=== PATIENT | female | born 1985 | race Hispanic/Latino ===

== ENCOUNTER 2020-03-13 15:41 | Emergency (ER) | payer OTHER, SELFPAY ==
[2020-03-13 15:50] VITALS: BP 158/90; PULSE 86; RESP 16; TEMP 36.9; O2SAT 98; BMI 29.2
--- NOTE | 2020-03-13 15:59 | DI.RAD.S_ITS ---
PROCEDURE: XR KNEE LT 3V INDICATIONS: knee injury TECHNIQUE: 3 views of the knee were acquired. COMPARISON: None. FINDINGS: Examination is slightly limited by overlying compressive wrap. Bones: No fractures or dislocations. No suspicious bony lesions. Soft tissues: No joint effusion. No suspicious soft tissue calcifications. IMPRESSION: No acute abnormality is seen on these plain films. If there is strong clinical suspicion for internal derangement of the knee, please consider a dedicated, scheduled MRI for further evaluation (assuming that there is no contraindication to MRI). Dictated by: Timothy Rizzo M.D. on 03/13/2020 at 15:17 Approved by: Timothy Rizzo M.D. on 03/13/2020 at 15:18
[2020-03-13] MEDS: IBUPROFEN 400 MG TABLET PO (17:46)
[2020-03-13] MEDS: ACETAMINOPHEN 325 MG TABLET 650 MG PO (17:46)
[2020-03-13] MEDS: HYDROCODONE/ACET 5/325 TABLET 1 TAB PO (17:46)
[2020-03-13 17:55] VITALS: BP 145/88; PULSE 71; RESP 16; O2SAT 99
--- NOTE | 2020-03-14 00:30 | ED.LOWEXIN ---
HPI - Extremity Injury (Lower) <JOHN Joy - Last Filed: 03/14/20 00:46> General Chief Complaint: Extremity Injury, Lower Stated Complaint: Hurt Left Knee 5 Days Ago, Not Getting Better Time Seen by Provider: 03/13/20 16:26 Source: patient Mode of arrival: Ambulatory Limitations: no limitations History of Present Illness HPI Narrative: This is a 34 year female, nonsmoker, who has history of partial tear in left meniscus presents to ED with chief complain of left knee pain for last 5 days. Patient felt popped in her knee when she was working out with weights while she was squatting down Patient reports instability and pain when she bears weight. Patient reports intact sensation distally and is able to move her toes. Patient reports pain fall around the knee and worsening with flexion, extension of affected knee or palpation of the knee. She has been icing the affected knee with elevation, sleeve like knee immobilizer and using ibuprofen and Tylenol at home for pain. Related Data Home Medications Medication Instructions Recorded Confirmed ibuprofen [Motrin IB] 400 mg PO Q6H 03/13/20 03/13/20 Previous Rx's Medication Instructions Recorded hydrocodone-acetaminophen [[place]] 1 tab PO Q8H PRN #7 tab 03/13/20 Allergies Allergy/AdvReac Type Severity Reaction Status Date / Time No Known Drug Allergies Allergy Verified 03/13/20 16:07 Review of Systems <JOHN Joy - Last Filed: 03/14/20 00:46> Review of Systems Narrative: General: Denies fever, chills, fatigue, malaise, sweats. Respiratory: Denies dyspnea, cough, wheezing, hemoptysis, sputum. Cardiovascular: Denies chest pain, palpitations, orthopnea, edema. : Denies dysuria, frequency, incontinence, hematuria, urinary retention. Musculoskeletal: Feet HPI Skin: Denies rash, skin lesions, or other. Patient History <JOHN Joy - Last Filed: 03/14/20 00:46> Surgical History History of appendectomy (Acute) History of removal of ovarian cyst (Acute) Social History Smoking Status: Never smoker Smoking Status: Never smoker alcohol intake frequency: holidays/special occasions only Substance Use Type: does not use Exam <Efrain JOHN Logan - Last Filed: 03/14/20 00:46> Narrative Exam Narrative: General appearance: well developed, well nourished, in mild distress due to pain during exam. Head: normocephalic, atraumatic, no scalp lesions, non-tender. ENT: Hearing grossly intact. Nose without bleeding, purulent discharge, septal hematoma or deviation. Turbinate without erythema or swelling. Facial sinuses nontender to palpate. Mucous membrane moist, no mucosal lesion. Throat without erythema, tonsillar hypertrophy or exudate. Uvula in midline, airway patent. Neck/Thyroid: neck supple, full range of motion, no visible masses or meningeal signs. No JVD, non-tender without lymphadenopathy. Skin: no suspicious rashes, lesions over visible areas. Warm and dry and appropriate color for ethnicity. Heart: no clubbing, no cyanosis, no edema. S1 and S2 normal. RRR w/o murmurs, clicks, or bruits. Lungs: Breathing even and unlabored. No stridor. No accessory muscles used. Able to speak in full sentences. Chest: normal shape and expansion. Abdomen: non-obese, non-distended. Neurologic: alert and oriented. Cognitive exam, LACE PINNER and PNS grossly intact on informal exam. Psych: good eye contact, normal affect. Initial Vital Signs Initial Vital Signs: Vital Signs Temperature 98.5 F 03/13/20 15:50 Pulse Rate 86 03/13/20 15:50 Respiratory Rate 16 03/13/20 15:50 Blood Pressure 158/90 H 03/13/20 15:50 Pulse Oximetry 98 03/13/20 15:50 Extrem Left lower extremity: knee Details: tenderness, swelling Location: of the patella, of the pre-patellar area and of the infrapatellar area, abnormal ROM, knee ligament exam abnormal Details: valgus stress test, varus stress test and Segundo?s test, deformity and other (Intact popliteal pulse), lower leg Details: normal to inspection; no tenderness and no localized swelling, ankle Details: normal to inspection; no tenderness and no swelling and foot Details: normal to inspection, toes with normal ROM, no edema, vascular exam Details: dorsalis pedis pulse present and normal capillary refill and motor-sensory exam Details: light-touch normal; no tenderness and no unusual warmth <Carmen Whitten DO - Last Filed: 03/14/20 08:06> Initial Vital Signs Initial Vital Signs: Vital Signs Temperature 98.5 F 03/13/20 15:50 Pulse Rate 86 03/13/20 15:50 Respiratory Rate 16 03/13/20 15:50 Blood Pressure 158/90 H 03/13/20 15:50 Pulse Oximetry 98 03/13/20 15:50 Procedures <JOHN Joy - Last Filed: 03/14/20 00:46> Orthopedic Splinting/Casting Injury #1: Side: left Lower Extremity Injury Location: knee Lower Extremity Immobilizer: knee immobilizer Post splinting neuro exam: intact Post splinting vascular exam: intact Placed by: Nursing Scores <JOHN Joy - Last Filed: 03/14/20 00:46> GCS [place] coma scale eye opening: Spontaneous [place] coma scale verbal response: Orientated Jodi coma scale motor response: Obey commands Jodi coma scale total score: 15 Course <JOHN Joy - Last Filed: 03/14/20 00:46> Orders Ordered: Discontinued Medications Acetaminophen (Tylenol) 650 mg PO NOW ONE Stop: 03/13/20 17:30 Last Admin: 03/13/20 17:46 Dose: 650 mg Documented by: MYA Hydrocodone Bitart/Acetaminophen ([place] 5/325) 1 tab PO NOW ONE Stop: 03/13/20 17:30 Last Admin: 03/13/20 17:46 Dose: 1 tab Documented by: MYA Ibuprofen (Advil) 400 mg PO NOW ONE Stop: 03/13/20 17:30 Last Admin: 03/13/20 17:46 Dose: 400 mg Documented by: MYA Vital Signs Vital signs: Vital Signs - 8 hr 03/13/20 17:55 Pulse Rate 71 Respiratory Rate 16 Blood Pressure 145/88 H Pulse Oximetry 99 <Carmen Whitten DO - Last Filed: 03/14/20 08:06> Orders Ordered: Discontinued Medications Acetaminophen (Tylenol) 650 mg PO NOW ONE Stop: 03/13/20 17:30 Last Admin: 03/13/20 17:46 Dose: 650 mg Documented by: MYA Hydrocodone Bitart/Acetaminophen ([place] 5/325) 1 tab PO NOW ONE Stop: 03/13/20 17:30 Last Admin: 03/13/20 17:46 Dose: 1 tab Documented by: MYA Ibuprofen (Advil) 400 mg PO NOW ONE Stop: 03/13/20 17:30 Last Admin: 03/13/20 17:46 Dose: 400 mg Documented by: MYA Vital Signs Vital signs: Vital Signs - 8 hr 03/13/20 17:55 Pulse Rate 71 Respiratory Rate 16 Blood Pressure 145/88 H Pulse Oximetry 99 MDM - Extremity Injury (Lower) <JOHN Joy - Last Filed: 03/14/20 00:46> Differential Diagnosis Differential diagnosis: Likely acute internal derangement of knee and other (Knee sprain, knee fracture,) Imaging Data XR-Knee LT: Radiologist's Impression: [address] [address] XRay Report Signed Patient: Jose Patten TMR#: [id number] : 1985Acct:[id number] Age/Sex: 34 / FDate of Service: 03/13/20 Loc: ED Accession Number: [id number] Procedure: XR knee LT 3V Ordering Provider: Efrain Logan PROCEDURE: XR KNEE LT 3V INDICATIONS: knee injury TECHNIQUE: 3 views of the knee were acquired. COMPARISON: None. FINDINGS: Examination is slightly limited by overlying compressive wrap. Bones: No fractures or dislocations. No suspicious bony lesions. Soft tissues: No joint effusion. No suspicious soft tissue calcifications. IMPRESSION: No acute abnormality is seen on these plain films. If there is strong clinical suspicion for internal derangement of the knee, please consider a dedicated, scheduled MRI for further evaluation (assuming that there is no contraindication to MRI). Dictated by: Tmiothy Rizzo M.D. on 03/13/2020 at 15:17 Approved by: Timothy Rizzo M.D. on 03/13/2020 at 15:18 [facility] Narrative Medical decision making narrative: Patient has exquisite tenderness around the patella with light palpation and passive and active range of motion. Intact sensation distally and dorsal pedis and popliteal pulse. Patient is able to move her toes without difficulty and denies pain or swelling in lower extremities, ankle, or foot. X-ray test shows no acute abnormality findings. Given patient has history of partial meniscus tear and feeling instability when bearing weight, patient advised to follow-up with [facility] orthopedist for an evaluation and possible advanced imaging test. Affected knee has been placed in knee immobilizer and to use (patient's own) crutches for ambulation and weight bearing. Patient advised to use [id number] Tylenol and or Motrin as needed for baseline pain and discharged to home with a few tabs of [place] for severe pain along narcotic medication precautions. Return precautions were discussed with patient and patient verbalized understanding in agreement with treatment presents. Discharge Plan Departure Patient Disposition: Home Clinical Impression: Derangement of knee, left Discharge Date/Time: 03/13/20 17:58 Instructions: DI for Knee Pain Activity Restrictions/Additional Instructions: You have been diagnosed with [left knee pain likely ligament injury. X-ray test on left knee does not show acute findings such as fracture, dislocation or joint effusion. You may need advanced imaging test if pain is not getting better]. What to do: *Take your medications as directed. Please take [id number] Tylenol and or Motrin as needed for discomfort. Tylenol 650-1000 mg up to 3 to 4 times a day as needed for pain. Ibuprofen 400 mg up to 3 to 4 times a day as needed for pain with food to decrease GI irritation. Please use narcotic medication [place] for severe pain. It can cause drowsiness so please do not drive, drink alcohol, or operate heavy equipments. He can also cause constipation so please take precautions. Use knee immobilizer for discomfort and crutches that you have at home. *Follow up with your primary care provider/[facility] orthopedist in 2-3 days, call for an appointment. Let them know you were seen in the ED and that we asked you to be seen in follow up. *Return to ED if you have any new, worsening, or concerning symptoms, such as [increasing pain/swelling, numbness, weakness, chest pain, breathing difficulty, unable to tolerate fluids or any acute concerns]. Prescriptions: New hydrocodone-acetaminophen [[place]] 5-325 mg tablet 1 tab PO Q8H PRN (Reason: pain) Qty: 7 RF: 0 No Action ibuprofen [Motrin IB] 200 mg Tablet 400 mg PO Q6H RF: 0 Referrals: [facility] [Provider Group] Terra Dias MD [Primary Care Provider] - <Carmen Whitten DO - Last Filed: 03/14/20 08:06> Cosign ED Attending Girma Attestation: I was immediately available in the department for consultation. Documentation has been reviewed. I agree with assessment and plan. l
== END 2020-03-13 17:58 | disposition home or self-care (01) ==
PROVIDERS: Emergency Provider Nurse Practitioner Family; PCP Family Medicine
DX: M23.92 Unspecified internal derangement of left knee (principal)
CPT/HCPCS: 73562; 99283

== ENCOUNTER 2020-10-21 08:21 | Emergency (ER) | payer OTHER, SELFPAY ==
[2020-10-21 08:25] VITALS: BP 152/96; PULSE 82; RESP 19; TEMP 36.8; O2SAT 97; BMI 29.2
--- NOTE | 2020-10-21 08:35 | ED_ITS ---
HPI - General Adult General Chief complaint: Headache Stated complaint: LOWER BACK PAIN, REALLY BAD HEADACHE Time Seen by Provider: 10/21/20 08:23 Source: patient Mode of arrival: Ambulatory Limitations: no limitations History of Present Illness HPI narrative: Patient is a 35-year-old female is here for evaluation of lower back pain and also headache. She has had lower back pain for some time. 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 She states that she was told that this is likely not causing her issues. Over the past several weeks she has developed lower back pain. She has also developed headache which she states is associated with an increase in her lower back pain. She went to her primary doctor in order to obtain a referral to have a CT scan/MRI. She was told that the referral process was taking a long time so approximately 10 days ago she went to emergency department at an outside facility where she had a CT scan performed which was unremarkable. She was told to take [id number]-esh-[id number] anti-inflammatories. According to her discharge paperwork it does look like she was sent home with a Medrol Dosepak. She states she is here today because last evening the symptoms got especially worse. She was tearful about her symptoms in the exam room. She states that she has followed up with her primary doctor since that emergency department visit and does have a referral in to see ?a neurologist ? Related Data Home Medications Medication Instructions Recorded Confirmed ibuprofen [Motrin IB] 400 mg PO Q6H 03/13/20 03/13/20 Previous Rx's Medication Instructions Recorded hydrocodone-acetaminophen [[place]] 1 tab PO Q8H PRN #7 tab 03/13/20 Allergies Allergy/AdvReac Type Severity Reaction Status Date / Time No Known Drug Allergies Allergy Verified 03/13/20 16:07 Review of Systems Constitutional Constitutional: Denies fatigue, Denies fever(s) and Reports headache(s) Eyes Eyes: Denies change in vision ENT Ears, Nose, Mouth, and Throat: Reports dizziness, Reports headache(s), Denies disequilibrium and Denies sore throat Cardiovascular Cardiovascular: Denies chest pain and Denies dyspnea Respiratory Respiratory: Denies dyspnea Gastrointestinal Gastrointestinal: Denies abdominal pain, Denies change in bowel habits, Denies nausea and Denies vomiting Genitourinary Genitourinary: Denies dysuria, Denies urinary frequency, Denies urinary hesitancy and Denies urinary incontinence Genitourinary: Denies urinary frequency, Denies dysuria, Denies urinary incontinence and Denies urinary hesitancy Musculoskeletal Musculoskeletal: Reports back pain Integumentary/Breasts Skin/Breast: Denies lesions and Denies rash Neurologic Neurologic: Denies abnormal speech, Denies burning sensations, Denies confusion, Reports dizziness, Reports headache(s), Denies localized weakness, Denies radicular pain, Denies sensory deficit and Denies disequilibrium Psychiatric Psychiatric: Denies confusion Endocrine Endocrine: Denies fatigue Hematologic/Lymphatic On Anticoagulants: No Allergic/Immunologic Allergic/Immunologic: Denies urticaria Patient History Medical History Concussion Surgical History History of appendectomy History of removal of ovarian cyst Social History Smoking Status: Never smoker Smoking Status: Never smoker alcohol intake frequency: holidays/special occasions only Substance Use Type: does not use Exam Initial Vital Signs Initial Vital Signs: Vital Signs Temperature 98.2 F 10/21/20 08:25 Pulse Rate 82 10/21/20 08:25 Respiratory Rate 19 10/21/20 08:25 Blood Pressure 152/96 H 10/21/20 08:25 Pulse Oximetry 97 10/21/20 08:25 Const General: cooperative, healthy appearing, comfortable, well developed and well groomed Limitations: mental status not altered HENMT Head: normal to inspection and normocephalic Ears: hearing grossly normal bilaterally Nose: external nose normal Face and sinus: normal facial exam Mouth: oral mucosae normal Eyes Pupils: PERRL EOM: EOM intact bilaterally Resp Effort & Inspection: normal respiratory effort Auscultation: clear to auscultation bilaterally Cardio Rate: regular rate Rhythm: regular rhythm GI Inspection: non-distended Palpation: soft Skin Lesions: no lesions Rashes: no rashes Neuro General: patient alert, patient awake and patient oriented x3 Cognition: normal cognition Speech: speech normal Gait: normal gait Motor: muscle tone normal throughout Other: Her cranial nerves are intact except for a subjective decrease in sensation to light touch on the right side of her face compared to the left. Extrem General: normal to inspection and capillary refill normal Psych Appearance: grossly normal and well kempt Scores GCS Jodi coma scale eye opening: Spontaneous [place] coma scale verbal response: Orientated [place] coma scale motor response: Obey commands Jodi coma scale total score: 15 Course Orders Ordered: ED Orders 10/21/20 08:35 CT head/brain wo con Stat 10/21/20 09:24 MR head/brain wo/w con Stat Discontinued Medications Diphenhydramine HCl (Diphenhydramine 50 Mg/Ml Vial) 25 mg IV NOW ONE Stop: 10/21/20 08:36 Last Admin: 10/21/20 08:47 Dose: 25 mg Documented by: LORE Metoclopramide HCl (Metoclopramide 10 Mg/2 Ml Inj) 10 mg IV NOW ONE Stop: 10/21/20 08:36 Last Admin: 10/21/20 08:47 Dose: 10 mg Documented by: LORE Vital Signs Vital signs: Vital Signs - 8 hr 10/21/20 08:25 10/21/20 11:30 Temperature 98.2 F Pulse Rate 82 69 Respiratory Rate 19 Blood Pressure 152/96 H 134/91 H Pulse Oximetry 97 97 Medical Decision Making Imaging Data CT scan - head: Radiologist's Impression: [address] [id number] Scan ReportSigned Patient: Jose Patten TMR#: [id number]: 1985Acct:[id number]/Sex: 35 / FDate of Service: 10/21/20Loc: EDAccession Number: [id number] Procedure: CT head/brain wo con Ordering Provider: Artis Aguilera D.O. PROCEDURE: CT HEAD/BRAIN WO CON INDICATIONS: headache and subjective right sided facial numbness TECHNIQUE: Noncontrast 4.5 mm thick angled axial sections acquired from the foramen magnum to the vertex, with coronal and sagittal reformats. For radiation dose reduction, the following was used: automated exposure control, adjustment of mA and/or kV according to patient size. COMPARISON: None. FINDINGS: Image quality: Excellent. CSF spaces: Basal cisterns are patent. No extra-axial fluid collections. Ventricles are normal in size and shape. Brain: There is subtle hypodensity in the left temporal lobe. No midline shift. No intracranial masses or hemorrhage. Skull and face: Calvarium and visualized facial bones are intact, without suspicious lesions. Sinuses: Visualized sinuses and mastoids are clear. IMPRESSION: Subtle hyperdensity in the left temporal lobe. If clinical symptoms persist or clinical suspicion for pathology is high, MRI is suggested for further evaluation. Dictated by: Deni Glez M.D. on 10/21/2020 at 8:01 Approved by: Deni Glez M.D. on 10/21/2020 at 8:15 brain MRI: Radiologist's Impression: [address] [id number] Resonance ReportSigned Patient: Jose Patten TMR#: [id number]: 1985Acct:[id number]/Sex: 35 / FDate of Service: 10/21/20Loc: EDAccession Number: [id number] Procedure: MR head/brain wo/w con Ordering Provider: Artis Aguilera D.O. PROCEDURE: MR HEAD/BRAIN WO/W CON INDICATIONS: L temp lobe finding on CT scan TECHNIQUE: Noncontrast axial T1 spin echo, axial T2 fast spin echo, sagittal and axial FLAIR, coronal T2 fast spin echo, axial gradient echo, axial diffusion and ADC through the brain. After the administration of contrast, axial and coronal 3D VIBE or T1 spin echo with fat saturation through the brain. COMPARISON: [facility], CT, CT HEAD/BRAIN WO CON, 10/21/2020, 8:48. FINDINGS: Image quality: Excellent. CSF Spaces: Basal cisterns are patent. No extra-axial fluid collections. Ventricles are normal in size and shape. Brain: No midline shift. No intracranial bleeds or masses. No abnormal intracranial enhancement. The brainstem appears normal. Diffusion-weighted images demonstrate no acute ischemic insults. No chronic ischemic insults. Normal intravascular flow voids are present. Previously identified low-attenuation focus within the left temporal lobe is felt to be artifactual. There is no abnormal signal or enhancement. Skull and face: Calvarial marrow is normal in signal. Orbits appear normal. Sinuses: Sinuses and mastoids appear clear. IMPRESSION: 1. No acute intracranial process. 2. No abnormal signal or enhancement within the area of asymmetric hypoattenuation on CT. It is felt to be likely artifactual. Dictated by: Dominique Deras M.D. on 10/21/2020 at 11:03 Approved by: Dominique Deras M.D. on 10/21/2020 at 11:21 [facility] Narrative Medical decision making narrative: Patient has no objective findings on her neurologic exam. She did report a decrease in sensation to the right side of her face compared to the left. CT scan and MRI of her brain are unremarkable. She does report improvement of her symptoms after the medications here. She has seen Ophthalmology recently as well. She is in the process of having a referral approved for her to go see Neurology which I believe is an appropriate next step for her. She was given return precautions and follow-up instructions. She expressed understanding and agreement. Discharge Plan Departure Patient Disposition: Home Clinical Impression: Headache Instructions: DI for Headache Activity Restrictions/Additional Instructions: Your workup here in the emergency department is very reassuring. I do agree with having you follow-up with Neurology. Contact your primary provider for follow-up. Return to the emergency department for any new or worsening symptoms Prescriptions: No Action ibuprofen [Motrin IB] 200 mg Tablet 400 mg PO Q6H RF: 0 hydrocodone-acetaminophen [[place]] 5-325 mg tablet 1 tab PO Q8H PRN (Reason: pain) Qty: 7 RF: 0 Referrals: Mirian Yadav ARNP [Primary Care Provider] -
[2020-10-21] MEDS: diphenhydrAMINE 50 MG/ML VIAL 25 MG IV (08:47)
[2020-10-21] MEDS: METOCLOPRAMIDE 10 MG/2 ML INJ IV (08:47)
--- NOTE | 2020-10-21 09:24 | DI.MRI.S_ITS ---
PROCEDURE: MR HEAD/BRAIN WO/W CON INDICATIONS: L temp lobe finding on CT scan TECHNIQUE: Noncontrast axial T1 spin echo, axial T2 fast spin echo, sagittal and axial FLAIR, coronal T2 fast spin echo, axial gradient echo, axial diffusion and ADC through the brain. After the administration of contrast, axial and coronal 3D VIBE or T1 spin echo with fat saturation through the brain. COMPARISON: [facility], CT, CT HEAD/BRAIN WO CON, 10/21/2020, 8:48. FINDINGS: Image quality: Excellent. CSF Spaces: Basal cisterns are patent. No extra-axial fluid collections. Ventricles are normal in size and shape. Brain: No midline shift. No intracranial bleeds or masses. No abnormal intracranial enhancement. The brainstem appears normal. Diffusion-weighted images demonstrate no acute ischemic insults. No chronic ischemic insults. Normal intravascular flow voids are present. Previously identified low-attenuation focus within the left temporal lobe is felt to be artifactual. There is no abnormal signal or enhancement. Skull and face: Calvarial marrow is normal in signal. Orbits appear normal. Sinuses: Sinuses and mastoids appear clear. IMPRESSION: 1. No acute intracranial process. 2. No abnormal signal or enhancement within the area of asymmetric hypoattenuation on CT. It is felt to be likely artifactual. Dictated by: Dominique Deras M.D. on 10/21/2020 at 11:03 Approved by: Dominique Deras M.D. on 10/21/2020 at 11:21
[2020-10-21 11:30] VITALS: BP 134/91; PULSE 69; O2SAT 97
== END 2020-10-21 11:41 | disposition home or self-care (01) ==
PROVIDERS: Emergency Provider Emergency Medicine; PCP Nurse Practitioner Family
DX: R51.9 Headache, unspecified (principal)
CPT/HCPCS: 70450; 70553; 96374; 96375; 99284; J1200; J2765

== ENCOUNTER → 2020-10-27 07:05 | Outpatient (CLI) | payer OTHER, SELFPAY ==
--- NOTE | 2020-10-27 | DI.MRI.S_ITS ---
PROCEDURE: MR PELIS WO/W CON INDICATIONS: PERINEURAL CYST TECHNIQUE: Noncontrast axial and coronal T1 spin echo and STIR through the lumbosacral plexus region. Optional contrast may be given, followed by axial and coronal T1 spin echo with fat saturation through the sacral plexus. COMPARISON: None. FINDINGS: Image quality: Excellent. Lumbosacral plexus: There is a 1.1 x 1.3 cm perineural cyst associated with the right S3 nerve root prior to its entry to the neural foramen. Postcontrast, there is no peripheral or internal enhancement. The central canal and neural foramina maintain normal morphology without osseous remodeling. The other sacral nerve roots appear normal in their course and caliber. Soft tissues: The musculature is symmetric, normal in size and signal.. No presacral masses. Uterus and right ovary appear normal. The left ovary was not well seen. Rectum appears normal in caliber and wall thickness. No pathologic free pelvic fluid. No visualized adenopathy by size criteria. Bones: Marrow is normal in overall signal. IMPRESSION: 1. 1.3 cm right S3 perineural cyst without adjacent mass effect. Dictated by: Freida Glover M.D. on 10/27/2020 at 8:20 Approved by: Freida Glover M.D. on 10/27/2020 at 8:35
== END ==
PROVIDERS: PCP Nurse Practitioner Family; Referring Provider Nurse Practitioner Family; Visit Provider Nurse Practitioner Family
DX: G96.191 Perineural cyst (principal); M53.3 Sacrococcygeal disorders, not elsewhere classified
CPT/HCPCS: 72197

== ENCOUNTER → 2020-11-14 08:39 | Outpatient (CLI) | payer OTHER, SELFPAY ==
--- NOTE | 2020-11-14 | DI.MRI.S_ITS ---
PROCEDURE: MR KNEE RT WO CON INDICATIONS: Sprain of other specified parts of right knee, initial encou TECHNIQUE: Noncontrast sagittal PD fast spin echo and T2 fast spin echo with fat saturation, sagittal 3-D FLASH with fat saturation; coronal T1 spin echo and PD fast spin echo with fat saturation, and axial PD fast spin echo with fat saturation through the knee. COMPARISON: None. FINDINGS: Image quality: Excellent. Menisci: There is a small peripheral horizontal oblique tear in the body of the lateral meniscus extending to the outer third of the tibial articular surface. The lateral meniscus is intact. Cruciate ligaments: The anterior and posterior cruciate ligaments appear intact. Medial structures: The medial collateral ligament appears intact. The semimembranosus tendon insertions and meniscocapsular junction appear intact. Visualized portions of the pes anserinus tendons appear normal. No abnormal bursal fluid. Lateral structures: The lateral collateral ligament, long and short heads of the biceps femoris tendon appear intact. The popliteus tendon appears intact. No signs of posterolateral corner injury. Iliotibial band appears normal. Anterior structures: There is mild patellar tendinosis. The distal quadriceps tendon is intact. No femoral trochlear dysplasia or ventral trochlear prominence. No edema in the infrapatellar fat pad. Bones and cartilage: No bone marrow contusions or fractures. Focal high-grade and possibly full-thickness cartilage loss is seen in the central to posterior weight-bearing portion of the medial femoral condyle measuring approximately 10 x 7 mm. The cartilages in the lateral and anterior compartments are intact. Joint space and soft tissues: There is a physiologic amount of joint fluid. A trace medial popliteal cyst is present. Mild superficial varicose veins are seen at the lateral aspect of the knee. IMPRESSION: 1. Small horizontal oblique tear in the body of the lateral meniscus extending to the outer third of the tibial articular surface. 2. Intact cruciate and collateral ligaments. No acute trabecular bone injury. 3. Focal grade 3-4 cartilage defect in the central posterior weight-bearing portion of the medial femoral condyle measuring 10 x 7 mm. 4. Mild patellar tendinosis. Dictated by: Checo Hernandez M.D. on 11/15/2020 at 10:06 Approved by: Checo Hernandez M.D. on 11/15/2020 at 10:26
== END ==
PROVIDERS: PCP Nurse Practitioner Family; Referring Provider Counselor Mental Health; Visit Provider Counselor Mental Health
DX: S83.8X1A Sprain of other specified parts of right knee, initial encounter (principal); S83.281A Other tear of lateral meniscus, current injury, right knee, initial encounter
CPT/HCPCS: 73721

== ENCOUNTER → 2021-04-07 06:43 | Outpatient (CLI) | payer OTHER, SELFPAY ==
--- NOTE | 2021-04-07 | DI.MRI.S_ITS ---
PROCEDURE: MR HEAD/BRAIN WO/W CON INDICATIONS: Anesthesia of skin TECHNIQUE: Noncontrast axial T1 spin echo, axial T2 fast spin echo, sagittal and axial FLAIR, coronal T2 fast spin echo, axial gradient echo, axial diffusion and ADC through the brain. After the administration of contrast, axial and coronal 3D VIBE or T1 spin echo with fat saturation through the brain. COMPARISON: [facility], MR, MR HEAD/BRAIN WO/W CON, 10/21/2020, 10:27. FINDINGS: Image quality: Excellent. CSF Spaces: Basal cisterns are patent. No extra-axial fluid collections. Ventricles are normal in size and shape. Brain: No midline shift. No intracranial bleeds or masses. No abnormal intracranial enhancement. The brainstem appears normal. Diffusion-weighted images demonstrate no acute ischemic insults. No chronic ischemic insults. Normal intravascular flow voids are present. Skull and face: Calvarial marrow is normal in signal. Orbits appear normal. Sinuses: Sinuses and mastoids appear clear. IMPRESSION: No evidence of acute ischemia. No acute intracranial signal abnormality or enhancement. Dictated by: Kike Samson M.D. on 04/07/2021 at 9:15 Approved by: Kike Samson M.D. on 04/07/2021 at 9:19
--- NOTE | 2021-04-07 | DI.MRI.S_ITS ---
PROCEDURE: MR CERVICAL SPINE WO CON INDICATIONS: Anesthesia of skin TECHNIQUE: Noncontrast sagittal T1 spin echo and T2 fast spin echo, sagittal STIR, foraminal oblique sagittal T2 fast spin echo, and axial gradient echo or T2 fast spin echo through the cervical spine. COMPARISON: None. FINDINGS: Image quality: Excellent. Alignment and Curvature: There is normal bony alignment. Bone Marrow: Marrow demonstrates normal overall signal. Spinal Cord: Visualized spinal cord has normal size and signal. No cerebellar tonsillar herniation. Paraspinous Soft Tissues: No paravertebral masses. Prevertebral soft tissues are normal in thickness. C2-C3: No canal stenosis or foraminal stenosis. C3-C4: Mild disc bulge. AP diameter of the canal is 10 mm. Right uncovertebral joint hypertrophy and mild right facet hypertrophy results in mild to moderate right foraminal narrowing and mild flattening deformity on the exiting right C4 nerve root. C4-C5: Mild disc bulge with very minimal central posterior disc protrusion resulting in mild canal stenosis. AP diameter of the canal is 9.2 mm. Mild bilateral uncovertebral joint hypertrophy. Mild right foraminal narrowing. Left foramen is patent. C5-C6: Disc bulge. Bilateral facet hypertrophy, right greater than left. Mild bilateral uncovertebral joint hypertrophy. AP diameter of the canal is 1.1 cm. Mild bilateral foraminal narrowing. C6-C7: Mild disc bulge. No canal stenosis. Mild bilateral facet hypertrophy. Mild bilateral uncovertebral joint hypertrophy. Mild bilateral foraminal narrowing. C7-T1: No canal stenosis or foraminal stenosis. IMPRESSION: 1. Cervical spondylitic change with multilevel uncovertebral joint hypertrophy and cervical facet hypertrophy. 2. Mild canal stenosis at C4-C5. Dictated by: Shaji Cornell M.D. on 04/07/2021 at 8:54 Approved by: Shaji Cornell M.D. on 04/07/2021 at 9:01
== END ==
PROVIDERS: PCP Nurse Practitioner Family; Referring Provider Psychiatry & Neurology Neurology; Visit Provider Psychiatry & Neurology Neurology
DX: R53.1 Weakness (principal); R20.0 Anesthesia of skin; M48.02 Spinal stenosis, cervical region
CPT/HCPCS: 70553; 72141

== ENCOUNTER 2021-08-01 09:19 | Emergency (ER) | payer OTHER, SELFPAY ==
--- NOTE | 2021-08-01 | DI.RAD.S_ITS ---
PROCEDURE: XR SACRUM COCCYX MIN 2V INDICATIONS: COCCYX PAIN, TRAUMA TECHNIQUE: 3 views of the sacrum and coccyx acquired. COMPARISON: None. FINDINGS: Bones: No fractures or dislocations. No suspicious bony lesions. Bilateral sacroiliac joint spaces are well preserved. No bony erosion ankylosis is noted. Soft tissues: Visualized bowel gas pattern is normal. No suspicious soft tissue densities. IMPRESSION: No acute sacral or coccygeal fracture. Dictated by: Forrest Haynes M.D. on 08/01/2021 at 13:01 Approved by: Forrest Haynes M.D. on 08/01/2021 at 13:03
[2021-08-01 09:26] VITALS: BP 158/97; PULSE 83; RESP 16; TEMP 36.9; O2SAT 97; BMI 28.3
--- NOTE | 2021-08-01 16:07 | ED_ITS ---
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 Patient reports that over the last 4 days it has gotten bigger, is tender, hurts to sit down, and when she gets up from having pressure on it the rebound pain is worse than for actual pressure pain. Patient denies any loss of bowel or bladder, numbness or tingling in any of her extremities, no focal neurologic deficits, she denies having a fever, abdominal pain, changes to her range of motion or mobility other than pain when she sits. Related Data Home Medications Medication Instructions Recorded Confirmed ibuprofen 200 mg tablet (Motrin IB) 400 mg PO Q6H 03/13/20 03/13/20 Previous Rx's Medication Instructions Recorded hydrocodone 5 mg-acetaminophen 325 1 tab PO Q8H PRN #7 tab 03/13/20 mg tablet (Boswell) methocarbamol 500 mg tablet 500 mg PO BEDTIME PRN #14 tab 08/01/21 prednisone 50 mg tablet 50 mg PO DAILY 5 Days #5 tab 08/01/21 Allergies Allergy/AdvReac Type Severity Reaction Status Date / Time No Known Drug Allergies Allergy Verified 03/13/20 16:07 Review of Systems Review of Systems Narrative: General: denies fever, chills Head/Neck: denies headache, neck pain Eyes: denies visual changes, eye pain Cardio: denies chest pain, palpitations Respiratory: denies shortness of breath, cough GI: denies abdominal pain, nausea, vomiting, or diarrhea : denies dysuria, hematuria MSK: denies joint pain, muscle weakness Skin: denies rash, itching Neuro: denies numbness, tingling Patient History Medical History Concussion Surgical History History of appendectomy History of removal of ovarian cyst Social History Smoking Status: Never smoker Smoking Status: Never smoker alcohol intake frequency: holidays/special occasions only Substance Use Type: does not use Exam Narrative Exam Narrative: Independently reviewed vitals signs and nursing notes. General: Awake, alert, nontoxic, no cardiorespiratory distress Head/Neck: Atraumatic, neck full range of motion Eyes: EOMI, conjunctiva normal Nose: nares patent, no rhinorrhea Mouth/Throat: moist mucus membranes Cardio: Regular rate and rhythm, no peripheral edema Respiratory: respirations unlabored without wheezing, stridor, or rales. No retractions. GI: Abdomen soft, nontender MSK: Moves all extremities, neurovascularly intact Skin: Normal capillary refill, no rash, 2 cm x 2 cm slightly firm, mildly erythematous area without a wound or head is present at the buttock cleft. Tender to palpation, no drainage no surrounding rash, no surrounding erythema or signs of abscess or infection. Neuro: Normal speech and cognition, normal gait Initial Vital Signs Initial Vital Signs: Vital Signs Temperature 98.4 F 08/01/21 09:26 Pulse Rate 83 08/01/21 09:26 Respiratory Rate 16 08/01/21 09:26 Blood Pressure 158/97 H 08/01/21 09:26 Pulse Oximetry 97 08/01/21 09:26 Course Course Course Narrative: Consult with Dr. Gomez general surgery who recommends me consulting Dr. Horner with Orthopedics as a [employer] specialist for a Tarlov cyst. He was paged 3 times without calling back, patient was referred to Dr. Horner and Dr. Rice both with spine. Per my research, Tarlov cysts can be filled with CSF fluid with continuity between the nerve roots and spinal cord. Patient's exam appears like a 1 cm or slightly larger pilonidal cyst with tenderness over the soft tissue, no fluctuance or cellulitis, without drainage. Because this could possibly be CSF filled, I opted to not I&D it because it did not appear infected and the risk was not worth the benefit. Orders Ordered: Discontinued Medications Diphtheria/Tetanus/Acell Pertussis (Tet,Diph,Pertuss(Acell),Vac/Pf 0.5 Ml Syringe) 0.5 ml IM .ONCE ONE Stop: 08/01/21 16:20 Last Admin: 08/01/21 16:36 Dose: 0.5 ml Documented by: Ketorolac Tromethamine (Ketorolac 30 Mg/Ml Vial) 15 mg IM NOW ONE Stop: 08/01/21 16:20 Last Admin: 08/01/21 16:37 Dose: 15 mg Documented by: Lidocaine/Sodium Bicarbonate (Lido 1%/Sod Bicarb 8.4% (10ml) 10 Ml Syringe) 10 ml INJ NOW ONE Stop: 08/01/21 16:20 Last Admin: 08/01/21 16:36 Dose: 10 ml Documented by: Prednisone (Prednisone 20 Mg Tablet) 40 mg PO NOW ONE Stop: 08/01/21 17:21 Vital Signs Vital signs: Vital Signs - 8 hr 08/01/21 09:26 08/01/21 16:29 Temperature 98.4 F Pulse Rate 83 62 Respiratory Rate 16 18 Blood Pressure 158/97 H 148/91 H Pulse Oximetry 97 97 MDM - Back Pain/Injury Imaging Data Extremity x-ray #1: Radiologist's Impression: PROCEDURE:? XR SACRUM COCCYX MIN 2V ? INDICATIONS:? COCCYX PAIN, TRAUMA ? TECHNIQUE:? 3 views of the sacrum and coccyx acquired.? ? COMPARISON:? None. ? FINDINGS:? ? Bones:? No fractures or dislocations.? No suspicious bony lesions.? Bilateral sacroiliac joint spaces are well preserved.? No bony erosion ankylosis is noted. ? Soft tissues:? Visualized bowel gas pattern is normal.? No suspicious soft tissue densities.? ? IMPRESSION:? No acute sacral or coccygeal fracture. ? ? Dictated by: Forrest Haynes M.D. on 08/01/2021 at 13:01 ? ? Approved by: Forrest Haynes M.D. on 08/01/2021 at 13:03 ? MRI Cervical Spine: Radiologist's Impression: PROCEDURE:? MR CERVICAL SPINE WO CON ? INDICATIONS:? Anesthesia of skin ? TECHNIQUE:? Noncontrast sagittal T1 spin echo and T2 fast spin echo, sagittal STIR, foraminal oblique sagittal T2 fast spin echo, and axial gradient echo or T2 fast spin echo through the cervical spine.? ? COMPARISON:? None. ? FINDINGS:? Image quality:? Excellent.? ? Alignment and Curvature:? There is normal bony alignment.? ? Bone Marrow:? Marrow demonstrates normal overall signal.? ? Spinal Cord:? Visualized spinal cord has normal size and signal.? No cerebellar tonsillar herniation.? ? Paraspinous Soft Tissues:? No paravertebral masses.? Prevertebral soft tissues are normal in thickness.? ? C2-C3:? No canal stenosis or foraminal stenosis. ? C3-C4:? Mild disc bulge.? AP diameter of the canal is 10 mm.? Right uncovertebral joint hypertrophy and mild right facet hypertrophy results in mild to moderate right foraminal narrowing and mild flattening deformity on the exiting right C4 nerve root. ? C4-C5:? Mild disc bulge with very minimal central posterior disc protrusion resulting in mild canal stenosis.? AP diameter of the canal is 9.2 mm.? Mild bilateral uncovertebral joint hypertrophy.? Mild right foraminal narrowing.? Left foramen is patent.? ? C5-C6:? Disc bulge.? Bilateral facet hypertrophy, right greater than left.? Mild bilateral uncovertebral joint hypertrophy.? AP diameter of the canal is 1.1 cm.? Mild bilateral foraminal narrowing.? ? C6-C7:? Mild disc bulge.? No canal stenosis.? Mild bilateral facet hypertrophy.? Mild bilateral uncovertebral joint hypertrophy.? Mild bilateral foraminal narrowing. ? C7-T1:? No canal stenosis or foraminal stenosis. ? IMPRESSION:? 1. Cervical spondylitic change with multilevel uncovertebral joint hypertrophy and cervical facet hypertrophy. 2. Mild canal stenosis at C4-C5.? ? ? Dictated by: Shaji Cornell M.D. on 04/07/2021 at 8:54 ? ? Approved by: Shaji Cornell M.D. on 04/07/2021 at 9:01 ? Pelvis MRI: Radiologist's Impression: PROCEDURE:? MR PELIS WO/W CON ? INDICATIONS:? PERINEURAL CYST ? TECHNIQUE:? Noncontrast axial and coronal T1 spin echo and STIR through the lumbosacral plexus region.? Optional contrast may be given, followed by axial and coronal T1 spin echo with fat saturation through the sacral plexus.? ? COMPARISON:? None. ? FINDINGS:? Image quality:? Excellent.? ? Lumbosacral plexus:? There is a 1.1 x 1.3 cm perineural cyst associated with the right S3 nerve root prior to its entry to the neural foramen.? Postcontrast, there is no peripheral or internal enhancement.? The central canal and neural foramina maintain normal morphology without osseous remodeling.? The other sacral nerve roots appear normal in their course and caliber.? ? Soft tissues:? The musculature is symmetric, normal in size and signal..? No presacral masses.? Uterus and right ovary appear normal.? The left ovary was not well seen.? Rectum appears normal in caliber and wall thickness.? No pathologic free pelvic fluid.? No visualized adenopathy by size criteria.? ? Bones:? Marrow is normal in overall signal.? ? IMPRESSION:? 1. 1.3 cm right S3 perineural cyst without adjacent mass effect.? ? ? Dictated by: Freida Glover M.D. on 10/27/2020 at 8:20 ? ? Approved by: Freida Glover M.D. on 10/27/2020 at 8:35 ? [facility] Narrative Medical decision making narrative: 36-year-old female with history of Tarlov cyst since visualized on MRI October 27, 2020, also noted to have cervical canal stenosis at C4-5 with spondylitic changes and multilevel uncovertebral joint hypertrophy and cervical facet hypertrophy. Patient reports that she had a neurologist who ordered these tests for her but she has not seen them since and they did not opt to drain her cyst at that time. She has not seen neuro surgery, she was told that her cervical vertebrae were without any abnormalities. Patient endorses having numbness and tingling in her hands and feet, she denies any loss of bowel or bladder, urinary retention, fever, and does endorse sciatic symptoms down her right buttock occasionally. Patient was seeking treatment for her cyst today with hopes of drainage, I consulted Dr. Gomez with General surgery who recommends consultation with Dr Horner who is ortho spine, he was called without a response. Per the nature of these perineural cysts, they may be filled with CSF, I am unfamiliar with risks of drainage therefore I did not opt to expose her spinal cord to possible infection. I referred her to Dr. Rice as well as Dr. Horner for Ortho Spine to discuss her previous cervical spine MRI and systemic symptoms she has been experiencing since last year. Her exam is reassuring that this is not infectious, there is no surrounding erythema, without fluctuance or abscess, she has erythema and firmness in a 1-2 cm area at her gluteal cleft. X-ray did not show any sign of bone induration, or acute fracture. Differential diagnosis include pilonidal cyst, sacral perineural cyst or cysts, no visible sinus or purulence drainage was noted. Discharge Plan Departure Patient Disposition: Home Clinical Impression: Tarlov cyst, Cervical spinal stenosis Sciatica Qualifiers: Laterality: right Qualified Code(s): M54.31 - Sciatica, right side Instructions: DI for Sciatica, DI for Tarlov Cyst, DI for Spinal Stenosis Activity Restrictions/Additional Instructions: *You have been diagnosed with a Tarlov cyst. Please follow-up with neurosurgery for definitive removal of this or recommendations on how to treat. I have sent a short course of steroids to your pharmacy. Your MRI in October of 2020 shows mild canal stenosis at C4-C5 with minor disc bulging from C3-C7 consistent with spondylitic changes. Please follow-up with Neurosurgery regarding your Tarlov cyst and cervical canal stenosis. It was not major but this is most likely why you are experiencing numbness and tingling in your hands and your feet. Please also discuss with HR your insurance coverage and benefits if COBRA is available to you to apply for. Below I attached your MRIs if these are helpful for you for your reference. Today your x-ray did not show any acute sacral or coccygeal fracture, no bony erosion ankylosis is noted, and without any suspicious soft tissue masses. *What to do: *Please continue to take your regular medications as directed. [x ] New medication prescriptions sent to your pharmacy: [alyssa Cramer ] [ ] New medication written as a paper prescription [ ] No new medications given *Please follow up with your primary care provider in 2-3 days, call for an appointment. Let them know you were seen in the Emergency Department and that we ask that you be seen in follow up. We will electronically transmit a record of today's note if your PCP is in our system *If you do not have a primary care provider please contact the [facility] Resource line at [phone]. They will ask some questions about your medical history and help get you set up with a doctor in the community. *Return to Emergency Department if you should have any new, worsening or concerning symptoms, such as [fever greater than 101F, chills, worsening pain, persistent vomiting or other bothersome symptoms] PROCEDURE:? MR CERVICAL SPINE WO CON ? INDICATIONS:? Anesthesia of skin ? TECHNIQUE:? Noncontrast sagittal T1 spin echo and T2 fast spin echo, sagittal STIR, foraminal oblique sagittal T2 fast spin echo, and axial gradient echo or T2 fast spin echo through the cervical spine.? ? COMPARISON:? None. ? FINDINGS:? Image quality:? Excellent.? ? Alignment and Curvature:? There is normal bony alignment.? ? Bone Marrow:? Marrow demonstrates normal overall signal.? ? Spinal Cord:? Visualized spinal cord has normal size and signal.? No cerebellar tonsillar herniation.? ? Paraspinous Soft Tissues:? No paravertebral masses.? Prevertebral soft tissues are normal in thickness.? ? C2-C3:? No canal stenosis or foraminal stenosis. ? C3-C4:? Mild disc bulge.? AP diameter of the canal is 10 mm.? Right uncovertebral joint hypertrophy and mild right facet hypertrophy results in mild to moderate right foraminal narrowing and mild flattening deformity on the exiting right C4 nerve root. ? C4-C5:? Mild disc bulge with very minimal central posterior disc protrusion resulting in mild canal stenosis.? AP diameter of the canal is 9.2 mm.? Mild bilateral uncovertebral joint hypertrophy.? Mild right foraminal narrowing.? Left foramen is patent.? ? C5-C6:? Disc bulge.? Bilateral facet hypertrophy, right greater than left.? Mild bilateral uncovertebral joint hypertrophy.? AP diameter of the canal is 1.1 cm.? Mild bilateral foraminal narrowing.? ? C6-C7:? Mild disc bulge.? No canal stenosis.? Mild bilateral facet hypertrophy.? Mild bilateral uncovertebral joint hypertrophy.? Mild bilateral foraminal narrowing. ? C7-T1:? No canal stenosis or foraminal stenosis. ? IMPRESSION:? 1. Cervical spondylitic change with multilevel uncovertebral joint hypertrophy and cervical facet hypertrophy. 2. Mild canal stenosis at C4-C5.? ? ? Dictated by: Shaji Cornell M.D. on 04/07/2021 at 8:54 ? ? Approved by: Shaji Cornell M.D. on 04/07/2021 at 9:01 ? PROCEDURE:? MR BANSAL WO/W CON ? INDICATIONS:? PERINEURAL CYST ? TECHNIQUE:? Noncontrast axial and coronal T1 spin echo and STIR through the lumbosacral plexus region.? Optional contrast may be given, followed by axial and coronal T1 spin echo with fat saturation through the sacral plexus.? ? COMPARISON:? None. ? FINDINGS:? Image quality:? Excellent.? ? Lumbosacral plexus:? There is a 1.1 x 1.3 cm perineural cyst associated with the right S3 nerve root prior to its entry to the neural foramen.? Postcontrast, there is no peripheral or internal enhancement.? The central canal and neural foramina maintain normal morphology without osseous remodeling.? The other sacral nerve roots appear normal in their course and caliber.? ? Soft tissues:? The musculature is symmetric, normal in size and signal..? No presacral masses.? Uterus and right ovary appear normal.? The left ovary was not well seen.? Rectum appears normal in caliber and wall thickness.? No pathologic free pelvic fluid.? No visualized adenopathy by size criteria.? ? Bones:? Marrow is normal in overall signal.? ? IMPRESSION:? 1. 1.3 cm right S3 perineural cyst without adjacent mass effect.? ? ? Dictated by: Freida Glover M.D. on 10/27/2020 at 8:20 ? ? Approved by: Freida Glover M.D. on 10/27/2020 at 8:35 ? Prescriptions: New prednisone 50 mg tablet 50 mg PO DAILY 5 Days Qty: 5 0RF methocarbamol 500 mg tablet 500 mg PO BEDTIME PRN (Reason: back pain w/sciatica) Qty: 14 0RF No Action ibuprofen [Motrin IB] 200 mg Tablet 400 mg PO Q6H 0RF hydrocodone-acetaminophen [Boswell] 5-325 mg tablet 1 tab PO Q8H PRN (Reason: pain) Qty: 7 0RF Referrals: Marixa Horner MD [Physician] - 3-5 days ([phone]- specifically for Dr. Horner) Mirian Yadav ARNP [Primary Care Provider] - Wilfrido Rice MD [Physician] - 5-7 days
[2021-08-01 16:29] VITALS: BP 148/91; PULSE 62; RESP 18; O2SAT 97
[2021-08-01] MEDS: TET,DIPH,PERTUSS(ACELL),VAC/PF 0.5 ML SYRINGE IM (16:36)
[2021-08-01] MEDS: KETOROLAC 30 MG/ML VIAL 15 MG IM (16:37)
[2021-08-01] MEDS: predniSONE 20 MG TABLET 40 MG PO (17:27)
== END 2021-08-01 17:39 | disposition home or self-care (01) ==
PROVIDERS: Emergency Provider Nurse Practitioner Critical Care Medicine; PCP Nurse Practitioner Family
DX: G96.191 Perineural cyst (principal); Z23 Encounter for immunization
CPT/HCPCS: 72220; 90471; 96372; 99283; 99284; 90715; J1885